=== PATIENT | female | born 1930 | race Caucasian/White ===

== ENCOUNTER → 2017-01-05 | Outpatient (CLI) | payer MEDICARE, BC ==
[~2017-01-05] MED LIST: COZAAR100 MG PO; ESCITALOPRAM OX10 MG PO; HYDROCHLOROTHIA25 MG PO; MOBIC7.5 MG PO; PRILOSEC20 MG PO; SYNTHROID50 MCG PO; ULTRAM50 MG PO
== END | disposition short-term general hospital (02) ==
LOC: CLCARD 11-07 14:39 → CLRHEU 12:24
DX: M05.9 Rheumatoid arthritis with rheumatoid factor, unspecified (principal); M06.4 Inflammatory polyarthropathy; N18.9 Chronic kidney disease, unspecified; M15.9 Polyosteoarthritis, unspecified; Z13.0 Encounter for screening for diseases of the blood and blood-forming organs and certain disorders involving the immune mechanism

== ENCOUNTER → 2017-02-02 | Outpatient (CLI) | payer MEDICARE, BC | END | disposition short-term general hospital (02) | LOC: CLRHEU 10:23 | DX: M05.9 Rheumatoid arthritis with rheumatoid factor, unspecified (principal); M15.9 Polyosteoarthritis, unspecified; N18.9 Chronic kidney disease, unspecified; R79.89 Other specified abnormal findings of blood chemistry; B19.20 Unspecified viral hepatitis C without hepatic coma ==

== ENCOUNTER → 2017-02-06 | Outpatient (CLI) | payer MEDICARE, BC | END | disposition short-term general hospital (02) | LOC: CLCARD 10:40 | DX: I35.1 Nonrheumatic aortic (valve) insufficiency (principal); I12.9 Hypertensive chronic kidney disease with stage 1 through stage 4 chronic kidney disease, or unspecified chronic kidney disease; N18.3 Chronic kidney disease, stage 3 (moderate); E03.9 Hypothyroidism, unspecified; R55 Syncope and collapse; R00.1 Bradycardia, unspecified ==